=== PATIENT | male | born 2000 | race Two or more races ===

== ENCOUNTER 2024-04-12 20:52 | Emergency (ER) | payer OTHER ==
[~2024-04-12] VITALS: Ht 188 cm; Wt 87.3 kg
[2024-04-12 21:05] VITALS: BP 137/81; PULSE 95; RESP 16; TEMP 98.5; O2SAT 98
[2024-04-13] MEDS ORDERED: IBUP-1456 PO (00:12)
== END 2024-04-13 00:33 | disposition home or self-care (01) ==
LOC: ER 20:52
DX: S83.92XA Sprain of unspecified site of left knee, initial encounter (principal); X58.XXXA Exposure to other specified factors, initial encounter; Y93.89 Activity, other specified; Y92.89 Other specified places as the place of occurrence of the external cause; Y99.8 Other external cause status
CPT/HCPCS: 29505; 73562